=== PATIENT | female | born 1975 | race Caucasian/White ===

== ENCOUNTER 2016-07-16 06:31 | Day surgery (SDC) | payer BC ==
[~2016-07-16] VITALS: Ht 160 cm; Wt 77.7 kg
[2016-07-16] VITALS (11 sets, daily range): BP systolic 140–181; BP diastolic 84–111; PULSE 71–100; RESP 13–24; Ht 160 cm; Wt 77.7 kg
[~2016-07-16 06:31] MED LIST: SOD CHLORIDE 0.9% 1,000 ML IV SCH
[2016-07-16] MEDS ORDERED: LIDOCAINE 2% (SDV) 5 ML INJ ONE (06:43)
[2016-07-16] MEDS ORDERED: ROCURONIUM 50 MG INJ ONE (06:43)
[2016-07-16] MEDS ORDERED: GLYCOPYRROLATE 1 MG INJ ONE (06:43)
[2016-07-16] MEDS ORDERED: PROPOFOL 20 ML ONE (06:44)
[2016-07-16] MEDS ORDERED: NEOSTIGMINE 3 MG/3 ML SYRINGE ONE (06:44)
[2016-07-16] MEDS ORDERED: MIDAZOLAM 1 MG/ML 2 ML INJ ONE (06:44)
[2016-07-16] MEDS ORDERED: FENTAnyl 50 MCG/ML VIAL ONE (06:44)
[2016-07-16] MEDS ORDERED: ONDANSETRON 4 MG INJ ONE (06:48)
[2016-07-16] MEDS ORDERED: DEXAMETHASONE 4 MG/ML 1 ML INJ ONE (06:48)
[2016-07-16] MEDS ORDERED: hydrALAzine 20 MG INJ IV PRN (07:00)
[2016-07-16] MEDS ORDERED: ONDANSETRON 4 MG INJ IV PRN (07:00)
[2016-07-16] MEDS ORDERED: FENTAnyl 50 MCG/ML VIAL IV PRN ×2 (07:00)
[2016-07-16] MEDS ORDERED: DIPHENHYDRAMINE 50 MG INJ IV PRN (07:00)
[2016-07-16] MEDS ORDERED: HYDROmorphONE (0.2 MG/ML) 10ML SYG IV PRN ×3 (07:00)
[2016-07-16] MEDS ORDERED: MIDAZOLAM 1 MG/ML 2 ML INJ IV PRN (07:00)
[2016-07-16] MEDS ORDERED: morphine (1 MG/ML) 10ML SYRINGE IV PRN ×3 (07:00)
[2016-07-16] MEDS ORDERED: LABETALOL HCL 20MG INJ IV PRN (07:00)
[2016-07-16] MEDS ORDERED: MEPERIDINE 25 MG INJ IV PRN (07:00)
[2016-07-16] MEDS ORDERED: EPHEDrine SULFATE 50 MG/5 ML SYG IV PRN (07:00)
[2016-07-16] MEDS ORDERED: OXYCODONE/ACETAMINOPHEN (5/325) TAB PO PRN ×2 (07:00)
[2016-07-16] MEDS ORDERED: ATROPINE 1 MG/10 ML SYRINGE IV PRN (07:00)
[2016-07-16] MEDS ORDERED: [UNRECOGNIZED DRUG - OTHER] PO (07:01)
[2016-07-16] MEDS ORDERED: BECL8.7A5 INH (07:01)
[2016-07-16] MEDS ORDERED: ALBU8.5H3 INH (07:01)
[2016-07-16] MEDS ORDERED: LITH300T26 PO (07:01)
[2016-07-16] MEDS ORDERED: MONT10TA21 PO (07:01)
[2016-07-16] MEDS ORDERED: ALBU2.5V3 NEB ×2 (07:01)
[2016-07-16] MEDS ORDERED: MEDR10TA2 PO (07:01)
[2016-07-16] MEDS ORDERED: ADDE30 PO (07:01)
[2016-07-16] MEDS ORDERED: BUPIVACAINE 0.5% (SDV) 30 ML INJ ONE (07:44)
[2016-07-16] MEDS ORDERED: ROPIVACAINE 0.5 % 30 ML VIAL ONE (07:44)
[2016-07-16] MEDS ORDERED: POVIDONE IODINE 10% 28.4 GM OINT ONE (07:45)
[2016-07-16] MEDS ORDERED: EPINEPHrine 1 MG/ML 30 ML INJ ONE (08:19)
[2016-07-16] MEDS ORDERED: BUPIVACAINE 0.25%/EPI (SDV) 30 ML INJ ONE (08:19)
[2016-07-16] MEDS ORDERED: ALBUTEROL 0.083% (NEB) 2.5 MG/3 ML AMP ONE (08:34)
[2016-07-16] MEDS ORDERED: ASPI325T32 PO (09:44)
[2016-07-16] MEDS ORDERED: HYDR-906 PO (09:44)
[2016-07-16] MEDS ORDERED: ALBUTEROL 0.5% (NEB) 2.5 MG/0.5 ML AMP ONE (09:45)
--- NOTE | 2016-07-16 10:32 | OPR ---
DATE OF OPERATION: 07/16/2016 PREOPERATIVE DIAGNOSIS: Left medial and lateral meniscal tears. POSTOPERATIVE DIAGNOSES: 1. Left medial meniscal tear. 2. Left lateral meniscal tear. 3. Left medial femoral condyle chondromalacia. 4. Chondromalacia of patellofemoral joint. 5. Extensive synovitis. PROCEDURE PERFORMED: 1. Arthroscopy of the left knee. 2. Arthroscopic partial medial meniscectomy. 3. Arthroscopic partial lateral meniscectomy. 4. Chondroplasty. 5. Synovectomy. SURGEON: Keith Martinez MD ANESTHESIOLOGIST: Sergio Lovett MD ANESTHESIA: General. TOURNIQUET TIME: At 250, less than 30 minutes. INDICATIONS: Shagufta is a patient we have been seeing for several months with symptomatic meniscal tea rs, which have been refractory to conservative treatment and she elected to proceed with surgery. A fter risks of surgery including pain, bleeding, infection, scar, damage to neurovascular structures, failure of the surgery to work, blood clots of the upper extremities, lower extremities, pulmonary embolism, risk of anesthesia and were explained to the patient, she elected to proceed. DESCRIPTION OF PROCEDURE: The patient was marked and identified in preoperative holding, brought to the operating room, placed supine on a regular operating room table and then having her left leg pl aced in an arthroscopic leg crane. She was placed under general anesthesia. The foot of the bed w as dropped and a pillow was applied to the contralateral extremity. Sequential compressive device w as placed on the contralateral extremity. Preoperative antibiotics were dosed and given to her and her bony prominences were well padded. The left leg was prepped and draped in the usual sterile fas hion and a timeout was performed. The tourniquet was inflated. Arthroscopy was initiated with creation of standard anteromedial and anterolateral portals. The res ult of diagnostic arthroscopy demonstrates a tear of the medial meniscus, a longitudinal split as we ll as a complex radially-based tear of the lateral meniscus which consumed the majority of the anter ior horn. There was chondromalacia of the medial femoral condyle at the portion that was articulati ng with the tear. The cruciate ligaments were in good condition. There was cartilage debris throug hout the knee and there was a grade III chondromalacia of the patellofemoral space. Our first area of work was within the medial compartment where using a combination of biting and sha ving instruments, a partial medial meniscectomy was performed until a stable rim of meniscus was rem aining. The same was applied to the lateral meniscus where shaver and biter instruments were used t o perform a partial lateral meniscectomy until a stable rim of meniscus was remaining. A shaver dev ice was used to perform a chondroplasty of the medial femoral compartment as well as the patellofemo ral space, and there was an area anteriorly of engorged synovium which underwent synovectomy with ou r shaver as well. Then, final photographs were taken and instrumentation was removed. The procedur e was terminated A 3-0 Monocryl was used for closure. Steri-Strips and DVT decompression stocking was applied. The patient was extubated in the operating room in good condition. Dictated By: KEITH BERMUDEZ/VIOLET Conf#: [id number] DID#: [id number]
[2016-07-16] MEDS ORDERED: OXYCODONE/ACETAMINOPHEN (5/325) TAB PO ONE (11:00)
[2016-07-16] MEDS ORDERED: AMLODIPINE 10 MG TAB PO ONE (11:00)
== END 2016-07-16 14:23 | disposition home or self-care (01) ==
LOC: SDS 06:31
PROVIDERS: ATTEND Orthopaedic Surgery
DX: M23.212 Derangement of anterior horn of medial meniscus due to old tear or injury, left knee (principal); M23.201 Derangement of unspecified lateral meniscus due to old tear or injury, left knee; E78.5 Hyperlipidemia, unspecified; J45.909 Unspecified asthma, uncomplicated; Z87.891 Personal history of nicotine dependence
CPT/HCPCS: 29880; 94664; J0171; J1100; J1170; J2250; J2405; J2710; J3010; Z7512; Z7610; J2795